=== PATIENT | female | born 1940 | race Caucasian/White ===

== ENCOUNTER → 2016-07-07 | Day surgery (SDC) | payer OTHER ==
--- NOTE | 2016-07-06 21:22 | MH ---
cc: KATHY HOLT MD DATE OF ADMISSION 07/07/2016 DATE OF 1940 CHIEF COMPLAINT Pelvic prolapse. HISTORY OF THE PRESENT ILLNESS The patient is a 75-year-old white female 3, para 3 with issues with pelvic organ prolapse anterior compartment. She has had prior hysterectomy and is having issues with pressure discomfort and wants to proceed with surgical therapy. PAST MEDICAL HISTORY The patient's medical history notable for: 1. Hypertension. 2. Gastroesophageal reflux disease. Negative for heart, lung, liver disease, diabetes or stroke. PAST SURGICAL HISTORY 1. Appendectomy. 2. Hysterectomy. 3. Laminectomy. 4. Tonsillectomy. GYNECOLOGIC HISTORY No STDs or abnormal Pap smears. Hysterectomy for benign condition. OBSTETRICAL HISTORY Three vaginal deliveries. ALLERGIES PENICILLIN CAUSES RASH BUT SHE HAS TAKEN CEPHALOSPORINS IN THE PAST. SOCIAL HISTORY Does not smoke, drink or take drugs. FAMILY HISTORY Noncontributory. MEDICATIONS 1. Atorvastatin 20 mg daily. 2. Omeprazole 20 milligrams daily. REVIEW OF SYSTEMS As above. No chest pain, orthopnea, PND. No nausea or vomiting, fever or chills. No vaginal bleeding or discharge. PHYSICAL EXAMINATION VITAL SIGNS: Afebrile. Vital signs stable. Blood pressure 120/70. Height is 5 feet. Weight 143. BMI 28. GENERAL: Patient is alert and oriented in no acute stress. No sign of cognitive dysfunction or depression. HEENT: Within normal limits. NECK: Supple. No JVD. CHEST: Clear. HEART: Regular rate and rhythm. ABDOMEN: Soft and nontender. No hepatosplenomegaly. No CVA tenderness. PELVIC: Examination will be detailed under anesthesia but in the office we note Pop Q score Aa is 0. Ap is -2. Point C is -5. Genital hiatus is 6. Perineal body is 4. Total vaginal length is 10. Levator strength is 1/5. Sacral nerve reflex is normal. There is no significant post void residual. EXTREMITIES: Normal. SKIN: Without rashes. NEUROLOGIC: Nonfocal. No DVT signs. ASSESSMENT The patient with pelvic organ prolapse anterior compartment, symptomatic, desires surgical correction. Patient is aware of the risks, benefits and alternatives of the planned procedure including damage to surrounding organs, bleeding, infection, [place] incontinence as well as failure of repair. Issues regarding prolonged catheterization also discussed as well as dyspareunia and other issues germane to the case. At this point we anticipate outpatient procedure. We use DVT prophylaxis with sequential compression device. She has used cephalosporins in the past. We will use Ancef 1 gram for antibiotic prophylaxis. MD DEMETRIS Marcial/KK /8:20 PM /8:29 PM
[~2016-07-07] VITALS: Ht 152.4 cm; Wt 61.7 kg
[~2016-07-07] MED LIST: *diphenhydrAMINE HCL 50 MG/ML VIAL PERIprocedural Use ONLY ONE; ACETAMINOPHEN 1000 MG/100 ML VIAL IV ONE; ATOR20TA15 PO; CO Q100C9 PO; DO NOT ADM ANY ANTICOAGULANT DRUGS XX PRN; ESTROGENS CONJUGATED VAG CREA 15 APPL/30 GM TUBE ONE; FAMOTIDINE 20 MG/2 ML VIAL ONE; FLUORESCEIN SOD 10% SOLN 500 MG/5 ML AMP ONE; ICAPCAP PO; INSULIN HUMAN REGULAR 1,000 UNITS/10 ML VIAL SQ PRN; KETOROLAC TROMETHAMINE 10 MG TAB PO PRN; KETOROLAC TROMETHAMINE 30 MG/ML (IVP) VIAL IV PUSH PRN; KETOROLAC TROMETHAMINE 60 MG/2 ML (IM) VIAL IM ONE; KETOROLAC TROMETHAMINE 60 MG/2 ML (IM) VIAL IM PRN; LACTATED RINGER'S 1000 ML INJ 1,000 ML IV ONE; LACTATED RINGER'S 1000 ML IV SCH; LIDOCAINE 1%/EPINEPHrine 1:100,000 SOLN 30 ML VIAL ONE; METHYLENE BLUE 10 MG/ML VIAL OTHER ONE; METOPROLOL TARTRATE 25 MG TAB PO PRN; MIDAZOLAM HCL 2 MG/2 ML VIAL ONE; NEOSTIGMINE 3 MG/3 ML SYR IV ONE; OMEP20TA PO; ONDANSETRON HCL 4 MG/2 ML VIAL IV PUSH ONE; ONDANSETRON HCL 4 MG/2 ML VIAL IV PUSH PRN; PROPOFOL 200 MG/20 ML AMP IV ONE; SILV1CRE20 TOPICAL; SODIUM CHLORID 0.9% 500 ML IV SCH; SODIUM CHLORIDE 0.9% INJ 100 ML ONE; ceFAZolin 1,000 MG/NS 100 ML IV SCH; ceFAZolin INJ 1,000 MG VIAL ONE; fentaNYL CITRATE 250 MCG/5 ML AMP ONE
[2016-07-07 08:19] VITALS: BP 135/70; PULSE 81; RESP 16; TEMP 98; O2SAT 97
[2016-07-07 11:46] VITALS: PULSE 93
--- NOTE | 2016-07-07 12:34 | PD.OP ---
Operative Report Date of Surgery: Jul 07, 2016 Preoperative Diagnosis: (1) Cystocele (2) Vaginal enterocele Postoperative Diagnosis: (1) Cystocele (2) Vaginal enterocele Procedure: ANTERIOR REPAIR VAGINAL REPAIR OF ENTEROCELE Anesthesia: GETA Surgeon: Tan Carbajal Investment Officer(s): [facility] [place] Operation and Findings: ANTERIOR REPAIR VAGINAL REPAIR OF ENTEROCELE CYSTOSCOPY Aa0 TO -3 NL CYSTO EBL 20 CC Tan Carbajal MD Jul 07, 2016 12:34
[2016-07-07 15:10] VITALS: BP 155/73; PULSE 89; RESP 20; TEMP 97; O2SAT 98
--- NOTE | 2016-07-10 05:25 | MP ---
cc: AKTHY HOLT MD DATE OF SURGERY: 07/07/2016 PREOPERATIVE DIAGNOSES Cystocele. POSTOPERATIVE DIAGNOSIS 1. Cystocele. 2. Enterocele. PROCEDURE 1. Anterior repair. 2. Enterocele repair. 3. Diagnostic cystoscopy. SURGEON Dr. Holt ANESTHESIA General endotracheal. ESTIMATED BLOOD LOSS 20 cc. URINE OUTPUT 400 cc. TOOLROOM ATTENDANT [place] Staff x2. FINDINGS External genitalia normal. POP-Q score: Aa is 0; Ap is -1; point C is -8; total vaginal length is 8; genital hiatus is 6; perineal body is 6. Following repair Aa is -3. Rectal exam normal following repair. Cystoscopy shows normal trigone, good coaptation of urethra, ureteral orifices patent x2, dome and base of bladder normal. SPECIMENS Mucosa clipped but not sent. DRAINS Jaffe catheter. COMPLICATIONS None. DISPOSITION To regular rhythm stable. PROGNOSIS Antibiotic prophylaxis: Ancef one gram. DVT prophylaxis: Sequential compression device. Timeout procedure per protocol. SUMMARY OF INDICATIONS FOR PROCEDURE Patient with symptomatic anterior compartment prolapse. DETAILS OF PROCEDURE The patient was taken to the operating theatre, identified, prepped and draped in a fashion appropriate for planned procedure. She was in dorsal lithotomy position with careful attention paid to placement of legs in the stirrups to avoid undue stress to sensitive neurovascular structures. Above findings noted. Neurovascular integrity documented. Jaffe catheter was placed. Methylene blue was instilled into the bladder. Exam showed significant anterior compartment defect. Epinephrine and lidocaine solution was infiltrated. A midline incision was made in the vaginal apex to approximately 1 cm from the urethral meatus. Careful dissection was performed. Enterocele was encountered and closed with delayed absorbable suture. We then performed cystocele repair without complication using delayed absorbable suture. Prior to closing the vaginal mucosa a cystoscopy was performed using a [place] bridge and a 70-degree scope. The patient received fluorescein IV and we were able to document clearly flow from each ureter and no damage to the dome or base of bladder. The vaginal mucosa was trimmed. The mucosal edges were closed with a running Vicryl suture in locking fashion. Hemostatic matrix was used for hemostasis to obviate the need for packing. The procedure was concluded. The patient was reversed from anesthesia and taken to the recovery room in stable condition. MD DEMETRIS Marcial/LAND[place] /12:20 PM /5:13 AM
== END | disposition home or self-care (01) ==
LOC: HSDC 07:08
PROVIDERS: ATTEND Obstetrics & Gynecology Gynecology
DX: N81.9 Female genital prolapse, unspecified (principal); N81.5 Vaginal enterocele; I10 Essential (primary) hypertension; K21.9 Gastro-esophageal reflux disease without esophagitis; Z88.0 Allergy status to penicillin; Z90.710 Acquired absence of both cervix and uterus
CPT/HCPCS: 00942; 57240; J0131; J0690; J1200; J1885; J2250; J2405; J2710; J3010; J7120

== ENCOUNTER 2016-07-09 12:20 | Emergency (ER) | payer OTHER ==
[~2016-07-09] VITALS: Ht 152.4 cm; Wt 64.0 kg
[~2016-07-09 12:20] MED LIST changes: -*diphenhydrAMINE HCL 50 MG/ML VIAL PERIprocedural Use ONLY ONE; -ACETAMINOPHEN 1000 MG/100 ML VIAL IV ONE; -DO NOT ADM ANY ANTICOAGULANT DRUGS XX PRN; -ESTROGENS CONJUGATED VAG CREA 15 APPL/30 GM TUBE ONE; -FAMOTIDINE 20 MG/2 ML VIAL ONE; -FLUORESCEIN SOD 10% SOLN 500 MG/5 ML AMP ONE; -INSULIN HUMAN REGULAR 1,000 UNITS/10 ML VIAL SQ PRN; -KETOROLAC TROMETHAMINE 10 MG TAB PO PRN; -KETOROLAC TROMETHAMINE 30 MG/ML (IVP) VIAL IV PUSH PRN; -KETOROLAC TROMETHAMINE 60 MG/2 ML (IM) VIAL IM ONE; -KETOROLAC TROMETHAMINE 60 MG/2 ML (IM) VIAL IM PRN; -LACTATED RINGER'S 1000 ML INJ 1,000 ML IV ONE; -LACTATED RINGER'S 1000 ML IV SCH; -LIDOCAINE 1%/EPINEPHrine 1:100,000 SOLN 30 ML VIAL ONE; -METHYLENE BLUE 10 MG/ML VIAL OTHER ONE; -METOPROLOL TARTRATE 25 MG TAB PO PRN; -MIDAZOLAM HCL 2 MG/2 ML VIAL ONE; -NEOSTIGMINE 3 MG/3 ML SYR IV ONE; -ONDANSETRON HCL 4 MG/2 ML VIAL IV PUSH ONE; -ONDANSETRON HCL 4 MG/2 ML VIAL IV PUSH PRN; -PROPOFOL 200 MG/20 ML AMP IV ONE; -SILV1CRE20 TOPICAL; -SODIUM CHLORID 0.9% 500 ML IV SCH; -SODIUM CHLORIDE 0.9% INJ 100 ML ONE; -ceFAZolin 1,000 MG/NS 100 ML IV SCH; -ceFAZolin INJ 1,000 MG VIAL ONE; -fentaNYL CITRATE 250 MCG/5 ML AMP ONE
[2016-07-09 12:22] VITALS: BP 186/83; PULSE 92; RESP 16; TEMP 98.1; O2SAT 96
--- NOTE | 2016-07-09 13:46 | PD ---
HPI Chief Complaint: Burn Time Seen by Provider: 13:30 Travel History International Travel<30 days: No Contact w/Intl Traveler<30days: No Traveled to known affect area: No History of Present Illness HPI 75-year-old female coming in with a burn with blisters to her left medial upper arm. Patient recently underwent a surgery for prolapsed bladder, which went well, but after the surgery she noted a burning to this area with secondary blisters forming in the last 2 days. Patient denies other symptoms. Patient states she has had shingles in the past but this is different. She does want to make sure it was not going to get infected. She has no other complaints. There are no open wounds or blistering. Patient is allergic to codeine, Darvocet, and penicillin. PFSH Past Medical History Cancer: No Cardiovascular Problems: No High Cholesterol: Yes Diabetes: No Diminished Hearing: No Endocrine: No Gastrointestinal Disorders: Yes (GERD) Genitourinary: Yes Hepatitis: No Hiatal Hernia: No Immune Disorder: No Musculoskeletal: No Neurologic: Yes (BACK PAIN DOWN L SIDE ) Psychiatric: No Reproductive: No Respiratory: No Immunizations Current: No Thyroid Disease: No Tetanus Vaccination: Unknown Influenza Vaccination: Yes Past Surgical History Abdominal Surgery: Yes (APPY) AICD: No Appendectomy: Yes Gynecologic Surgery: Yes (HYSTERECTOMY) Hysterectomy: Yes Joint Replacement: No Neurologic Surgery: Yes (BACK FUSION) Pacemaker: No Other Surgery: Yes Social History Alcohol Use: No Tobacco Use: No Substance Use: No Allergies-Medications (Allergen,Severity, Reaction): Coded Allergies: Codeine (Verified Allergy, Severe, Nausea/Vomiting, 07/07/16) Darvocet-N 100 (Verified Allergy, Severe, Nausea/Vomiting, 07/07/16) Penicillin (Verified Allergy, Severe, rash, 07/07/16) Reported Meds & Prescriptions Reported Meds & Active Scripts Active Reported Icaps (Multiple Vitamins W/ Minerals) 1 Cap 1 Cap PO DAILY Atorvastatin (Atorvastatin Calcium) 20 Mg Tab 20 Mg PO HS Co Q 10 (Coenzyme Q10 (Ubidecarenone)) 100 Mg Cap 1 Cap PO HS Omeprazole 20 Mg Tab 20 Mg PO DAILY Review of Systems Except as stated in HPI: all other systems reviewed are Neg General / Constitutional: No: Fever Eyes: No: Visual changes HENT: No: Headaches Cardiovascular: No: Chest Pain or Discomfort Respiratory: No: Shortness of Breath Gastrointestinal: No: Abdominal Pain Genitourinary: No: Dysuria Musculoskeletal: No: Pain Skin: No Rash Neurologic: No: Weakness Psychiatric: No: Depression Endocrine: No: Polydipsia Hematologic/Lymphatic: No: Easy Bruising Physical Exam Narrative GENERAL: Patient appears in no acute distress. SKIN: Warm and dry. Color. Normal turgor. Patient has a 6 cm x 6 cm area of apparent burn to the inner left upper arm just above the elbow with several blisters consistent with a second-degree burn. There are no signs of open wound or cellulitis. HEAD: Atraumatic. Normocephalic. EYES: Pupils equal and round. No scleral icterus. No injection or drainage. ENT: No nasal bleeding or discharge. Mucous membranes pink and moist. Pharynx is normal. NECK: Trachea midline. Neck is supple nontender. CARDIOVASCULAR: Regular rate and rhythm. RESPIRATORY: No accessory muscle use. Clear to auscultation. Breath sounds equal bilaterally. MUSCULOSKELETAL: Extremities without clubbing, cyanosis, or edema. No obvious deformities. NEUROLOGICAL: Awake and alert. No obvious cranial nerve deficits. Motor grossly within normal limits. Five out of 5 muscle strength in the arms and legs. Normal speech. PSYCHIATRIC: Appropriate mood and affect; insight and judgment normal. Data Data Last Documented VS Vital Signs Date Time Temp Pulse Resp B/P Pulse Ox O2 Delivery O2 Flow Rate FiO2 07/09/16 12:22 98.1 92 16 186/83 96 Room Air MDM Medical Decision Making Medical Screen Exam Complete: Yes Emergency Medical Condition: Yes Differential Diagnosis [facility] First degree burn. Second degree burn left arm. Narrative Course Patient is medically stable at time of exam. Burn wound care was discussed with the patient. Petroleum gauze and bulky bandage was placed by myself. Patient is given a prescription for Silvadene ointment to be used once to twice daily with dressing changes for the next week. Patient follow with her primary care physician as needed. Patient may return the emergency department as necessary. Diagnosis Primary Impression: Second degree burn of left upper arm Qualified Code: T22.232A - Second degree burn of left upper arm, initial encounter Referrals: Primary Care Physician Patient Instructions: General Instructions, Second Degree Burn (ED) Additional Instructions: Burn wound care was discussed with the patient. Petroleum gauze and bulky bandage was placed by myself. Patient is given a prescription for Silvadene ointment to be used once to twice daily with dressing changes for the next week. Patient follow with her primary care physician as needed. Patient may return the emergency department as necessary. Med/Other Pt SpecificInfo: Prescription(s) given Disposition: 01 DISCHARGE HOME Condition: Stable Lonnie Poe Jul 09, 2016 13:46
[2016-07-09] MEDS ORDERED: SILV1CRE20 TOPICAL (13:47)
== END 2016-07-09 14:32 | disposition home or self-care (01) ==
LOC: NEPB 12:20
DX: T22.232A Burn of second degree of left upper arm, initial encounter (principal); E78.00 Pure hypercholesterolemia, unspecified; Z98.890 Other specified postprocedural states
CPT/HCPCS: 16020